=== PATIENT | female | born 1965 | race Caucasian/White ===

== ENCOUNTER 2019-06-03 10:11 | Inpatient (IN) ==
[2019-06-03 12:38] LABS: BASO# 0.03 X1000 (0.0-0.2); BASO% 0.2 % (0.0-0.8); EOS# 0.07 X1000 (0.0-0.7); EOS% 0.6 % (0.0-10.0); HEMATOCRIT 43.2 % (37.0-47.0); HEMOGLOBIN 14.7 g/dL (12.0-16.0); IMM GRAN# 0.03 X1000 (0.0-0.04); IMM GRAN% 0.2 % (0.0-0.5); LYMPH# 2.12 X1000 (1.2-3.4); LYMPH% 17.7 % (20.5-51.1); MCH 33.1 PG (27-31); MCV 97.3 FL (81-99); MONO% 7.5 % (1.7-9.3); MPV 12.8 FL (7.4-10.4); NEUT# 8.86 X1000 (1.4-6.5); NEUT% 73.8 % (42.2-75.2); PLT 197 X1000 (130-400); RBC 4.44 XMIL (4.2-5.4); RDW 12.9 % (11.5-14.5); WBC 12.01 X1000 (4.8-10.8)
[2019-06-03 13:03] LABS: AGAP 11; ALB/GLOB RATIO 1.3; ALBUMIN 3.9 g/dL (3.5-5.0); ALKALINE PHOSPHATASE 109 U/L (32-104); BUN 10 mg/dL (8-22); CALCIUM 9.1 mg/dL (8.8-10.2); CHLORIDE 103 mmol/L (98-107); COSMO 276; CREATININE 0.7 mg/dL (0.5-0.9); ESTIMATED GFR > 60; GLUCOSE 89 mg/dL (70-104); GOT 17 U/L (10-30); GPT 24 U/L (10-36); POTASSIUM 4.2 mmol/L (3.5-5.1); SODIUM 139 mmol/L (136-145); TCO2 25 mmol/L (25-35); TOTAL BILIRUBIN 0.29 mg/dL (0.20-1.00)
[2019-06-03 13:10] LABS: INR 0.91; PTT 23.7 Seconds (22.3-41.8)
--- NOTE | 2019-06-03 13:16 | PROVIDER DOCUMENTATION ---
This chart was entered by Radha Kovacs Scribe, acting as scribe for Fawad Rubio MD. HPI-General Adult - General Chief Complaint: Extremity Pain Stated Complaint: ARM PAIN Time Seen by Provider: 06/03/19 11:10 Source: patient Allergies/Adverse Reactions: Patient Allergies Allergy/AdvReac Type Severity Reaction Status Date / Time No Known Allergies Allergy Verified 06/01/19 07:58 Home Medications: Home Medication List Medication Instructions Recorded Confirmed Last Taken Type Cetirizine HCl [Zyrtec] 10 mg PO DAILY 05/27/19 06/01/19 05/31/19 09:00 History Famotidine [Pepcid] 20 mg PO HS 05/27/19 06/01/19 05/31/19 22:00 History LISINOpril [Prinivil] 10 mg PO DAILY 05/27/19 06/01/19 06/01/19 06:30 History - History of Present Illness -Gen Adult Nature of Presenting Problems: Patient is a 54 year old female who presents with right forearm pain that radiates to right upper arm. Patient states having a cardiac cath 2 days ago. States numbness in in right fingers. Location of Pain/Injury: reports: upper extremity (right forearm) Pain Radiation: reports: arm(s) (right upper arm) Quality of Pain: reports: aching Severity: reports: mild Timing: reports: still present Context/Activities at Onset: reports: light activity Associated Symptoms: reports: sensory/motor loss (numbness to right fingers) Similar Symptoms Previously?: Yes Recently seen or treated by another doctor?: Yes Review of Systems - Adult - REVIEW OF SYSTEMS - ADULT Constitutional: reports: no symptoms reported. denies: chills, fever, fatique Eyes: reports: no symptoms reported Ears, Nose, Mouth & Throat: reports: no symptoms reported Cardiovascular: reports: no symptoms reported Respiratory: reports: no symptoms reported Gastrointestinal: reports: no symptoms reported Genitourinary: reports: no symptoms reported Musculoskeletal: reports: see HPI, other (right arm pain). denies: back pain, neck pain Integumentary: reports: no symptoms reported Neurological: reports: see HPI, numbness (right fingers). denies: dizziness/vertigo, headache/migraines, syncope Psychiatric: reports: no symptoms reported Endocrine: reports: no symptoms reported Hematologic/Lymphatic: reports: no symptoms reported Allergic/Immunologic: reports: no symptoms reported All Other Systems: Reviewed and Negative Past History - Adult - PAST MEDICAL HISTORY-ADULT Review of Records: reports: Old Records Reviewed, Nursing Assessment Review, Medications Reviewed, Social history reviewed & non-contributory. Major Childhood Illnesses: reports: denies history Cardiovascular: reports: HTN Respiratory: reports: denies history Gastrointestinal: reports: denies history Obstetrical/Gynecological: reports: denies history Genitourinary: reports: denies history Musculoskeletal: reports: denies history Neurological: reports: denies history Psychiatric: reports: denies history Endocrine/Immune: reports: thyroid disorder Other Conditions: reports: denies history - PRIOR SURGERIES/PROCEDURES Surgical/Procedure History: reports: reviewed, not pertinent - IMMUNIZATION STATUS Childhood Immunizations: See Nurse Assessment Flu Vaccine: See Nurse Assessment - FAMILY HISTORY Family History: reviewed, not pertinent - SOCIAL HISTORY Smoking: cigarettes, less than 1 pack/day Provider spent 3-5 mins advising pt. on dangers of tobacco.: Discussed manners to quit use, and f/u contacts for add'l counseling. Substance Use: alcohol Alcohol Use Frequency: rarely Living Situation: family Physical Exam-General - PHYSICAL EXAM-ADULT Initial Vital Signs Reviewed: Yes - CONSTITUTIONAL General Appearance: alert, no apparent distress. negative: lethargic - RESPIRATORY Respiratory: chest non-tender, lungs clear, normal breath sounds. negative: crackles, stridor - CARDIOVASCULAR Cardiovascular: normal peripheral pulses, regular rate, rhythm. negative: tachycardia - GASTROINTESTINAL (ABDOMEN) Abdominal Exam: normal bowel sounds, non tender, soft. negative: rebound - MUSCULOSKELETAL Extremity: normal capillary refill, tenderness (right forearm.), other (ecchymosis to right inner wrist.). negative: deformity, pulse deficit - SKIN Integumentary: ecchymosis (right inner wrist). negative: cyanosis, erythema, jaundice - NEUROLOGIC Neurologic: grossly normal. negative: aphasia, facial droop, sensory deficit - PSYCHIATRIC Psych/Mental Status: normal mood/affect, oriented x 3. negative: anxious Progress - PLAN OF CARE/RESULTS Progress/Plan/Lab Results: Vital Signs - 8 hr 06/03/19 10:19 Temperature 98.5 F Pulse Rate 76 Respiratory Rate 18 Blood Pressure 142/87 O2 Sat by Pulse Oximetry 97 Orders Category Date Time Status CBC WITH ELECTRONIC DIFF [HEME] Stat Lab 06/03/19 11:11 Uncollected COMPREHENSIVE METABOLIC PANEL [CHEM] Stat Lab 06/03/19 11:11 Uncollected Venous U/S Right Arm Stat Ther 06/03/19 11:11 Ordered 1310 - jessica Lyn, spoke with Dr. Royal. Dr. Royal states admit to him and make patient NPO. Result Diagrams: 06/03/19 12:20 06/03/19 12:20 - ULTRASOUND (By Radiology) 1 US Study: Upper Ext (right) Impression: See EMR Report US Results: US tech states patient has a DVT. - CONSULTS/PCP/HOSPITALIST Notification #1 *Consult/PCP/Hospitalist*: Dr. Royal Time Discussed: 12:11 Reason/Comments: Dr. Rubio consulted with Dr. Royal about patient. Consult Disposition: other (will look at patient's chart.) #2 Consult: Dr. Royal Time Discussed: 13:11 Reason/Comments: Dr. Rubio consulted with Dr. Royal about patient. Consult Disposition: other (Dr. Royal states patient does not need Loveno x/blood thinners.) Departure - Departure Date of Disposition Decision: 06/03/19 Time of Disposition Decision: 13:14 DIAGNOSIS: Blood clot of artery under arm Disposition: ADMITTED INPATIENT 09 Certified Medical Emergency: Emergent Condition: Fair Referrals and Follow-Ups: Anthony Rushing MD [Primary Care Provider] - - Critical Care Note This patient required my direct & personal management of CC.: Yes Total Time (mins): 35 Critical Care Statement: This patient required my direct personal management to treat or rule out processes, the absence of which, could potentiallly result in sudden, clinically significant life or limb threatening deterioration. Attestation - Physician/ RAMAN Attestation Patient care was provided by Advanced Practice Provider:: No The physician spent face to face time with patient:: Yes Advanced Practice Provider documentation review:: Supervising physician onsite and consulted in the evaluation and care of this patient. The physician did have a face to face encounter with the patient. This chart was documented by the indicated scribe, (Radha Kovacs, Gonzalo) and accurately reflects the services I performed and decisions made by me, Fawad Rubio MD, as attested by the provider's signature.
[2019-06-03] MEDS ORDERED: DILAUDID IM PRN (13:19)
[2019-06-03] MEDS ORDERED: ZOFRAN PO PRN (13:19)
[2019-06-03] MEDS ORDERED: ROBINUL ONE ×2 (15:33→17:25)
[2019-06-03] MEDS ORDERED: DIPRIVAN 1% ONE (15:33)
[2019-06-03] MEDS ORDERED: XYLOCAINE-MPF 2% ONE (15:33)
[2019-06-03] MEDS ORDERED: FENTANYL ONE (15:52)
[2019-06-03] MEDS ORDERED: NS 3,000 ML ONE (16:23)
[2019-06-03] MEDS ORDERED: HEPARIN ONE ×2 (16:23)
[2019-06-03] MEDS ORDERED: KEFZOL 1 GM/D5W 1 GM/50 ML IVPB ONE (16:41)
[2019-06-03] MEDS ORDERED: XYLOCAINE 1% ONE (16:49)
[2019-06-03] MEDS ORDERED: ZOFRAN ONE (16:57)
[2019-06-03] MEDS ORDERED: DECADRON ONE (16:57)
[2019-06-03] MEDS ORDERED: TORADOL ONE (16:57)
[2019-06-03] MEDS ORDERED: REGLAN ONE (16:58)
[2019-06-03] MEDS ORDERED: OFIRMEV 1000 MG/ISOTONIC SOLN 1,000 MG/100 ML BOTTLE ONE (17:19)
[2019-06-03] MEDS ORDERED: NEOSTIGMINE ONE (17:25)
[2019-06-03] MEDS: DILAUDID ONE ×2 (17:50→17:56)
[2019-06-03] MEDS ORDERED: LR 1,000 ML ONE (17:56)
[2019-06-03] MEDS ORDERED: NORCO-10 ONE (18:27)
[2019-06-03] MEDS ORDERED: ZOFRAN IV PRN (19:16)
[2019-06-03] MEDS ORDERED: XARELTO PO ONE (19:16)
[2019-06-03] MEDS ORDERED: LR 1,000 ML IV SCH (19:16)
[2019-06-03] MEDS ORDERED: PEPCID PO SCH (21:00)
[2019-06-03] MEDS: NORCO-10 PO PRN (22:07)
[2019-06-03] MEDS: PERIDEX MT SCH (22:07)
[2019-06-04] MEDS: NORCO-10 PO PRN ×2 (02:47→07:45)
--- NOTE | 2019-06-04 06:19 | OPERATIVE NOTE ---
PROCEDURE DATE: 06/03/2019 PROCEDURE PERFORMED: Open catheter thrombectomy, right radial artery. SURGEON: Nick Royal MD ASSISTANTS: Candelaria and Shruthi. PREOPERATIVE DIAGNOSIS: Thrombosis, right radial artery. POSTOPERATIVE DIAGNOSIS: Thrombosis, right radial artery. INDICATIONS: This is a 54-year-old, 2 days after a right radial artery approach for a catheterization of her heart. She presents this morning with pain in her forearm. The ultrasound imaging reveals a right radial artery thrombosis throughout her forearm. We discussed her options, and we have decided to proceed with thrombectomy. DESCRIPTION OF PROCEDURE: Satisfactory general anesthesia was achieved. The right arm was prepped and draped in a sterile fashion. Heparin 7000 units were given. We anesthetized the skin with 1% lidocaine longitudinally over the puncture site. We incised the skin for 3 cm. We dissected down to the right radial artery. We identified the puncture site. I passed a small Vesseloop around the vessel proximally and distally. We then under 2.5 loupe magnification used an 11 blade to further open the puncture site. We passed a Adrienne into the hand, extracted clot distally and had good back-bleeding from the hand. We then used a small bulldog clamp to clamp off the artery distally. We then passed the Adrienne up to past the elbow into the brachial and pulled it out 3 times, after which we extruded all the clot and we had vigorous antegrade pulsatile flow. We then held the proximal radial artery occluded with the Vesseloop and under 2.5 loupe magnification used 7-0 Prolene simple stitches to close the transverse arteriotomy. Flow was established and a good pulse was noted within the radial artery distal to our arteriotomy. We then closed the subcutaneous tissue with 3-0 Polysorb. We closed the skin with a 4-0 Polysorb subcuticular stitch. An island dressing was applied, followed by Dayan. She tolerated it well and was sent to the recovery room in satisfactory condition. cc: MD Sergio Juan MD
[2019-06-04] MEDS: PERIDEX MT SCH (07:50)
[2019-06-04 08:08] VITALS: BP 147/87
[2019-06-04] MEDS ORDERED: PRINIVIL PO SCH (09:00)
[2019-06-04] MEDS ORDERED: ASPIRIN EC PO SCH (09:00)
[2019-06-04] MEDS ORDERED: ZYRTEC PO SCH (09:00)
--- NOTE | 2019-06-04 14:37 | GENERAL SURGERY PROGRESS NOTE ---
DATE: 06/04/2019 Ms. Hylton's wound is fine. Her hand is warm. We will discharge her today and keep her on aspirin and give her Xarelto for a couple of weeks. She will return to the office in a week. cc: Nick Royal MD
--- NOTE | 2019-06-07 20:52 | Extremity Venous Study ---
PROCEDURE NAME: Venous U/S Right Arm - 06/03/2019 REFERRING PHYSICIAN: Dr. Rubio, emergency department. INTERPRETATION BY: Dr. Royal. BUSINESS COMPUTERS TEACHER: Sujata. INDICATIONS: The patient has had a recent cath through the right radial artery. Complains of right upper extremity pain. FINDINGS: Right upper extremity imaging is accomplished. The internal jugular, subclavian, axillary, brachial, basilic, cephalic veins are all imaged are compressible with flow. The right radial artery in the forearm from the wrist to its takeoff is occluded. INTERPRETATION: No evidence of deep venous thrombosis. There is right radial artery occlusion in the forearm. cc: Nick Royal MD
== END 2019-06-04 09:47 | disposition home or self-care (01) | DRG 254 ==
LOC: ED 10:11 → 4N 18:51
PROVIDERS: ADMIT Surgery; ATTEND Surgery
CPT/HCPCS: 80053; 85025; 85610; 85730; 88304; 93971; 94761; 94799; A9270; J0131; J0690; J1100; J1170; J1644; J1885; J2405; J2765; J3010; J7030; J7120